=== PATIENT | female | born 1935 | race Caucasian/White ===

== ENCOUNTER 2022-12-31 17:26 | Emergency (ER) | payer MEDICARE ==
[2022-12-31 19:12] LABS: BASOPHILS ABSOLUTE AUTO 0.01 K/uL (0.02-0.10); BASOPHILS PERCENT AUTO 0.1 % (0.0-0.5); EOSINOPHILS ABSOLUTE AUTO 0.13 K/uL (0.04-0.40); EOSINOPHILS PERCENT AUTO 1.5 % (1.0-5.0); HEMATOCRIT 32.8 % (37.0-47.0); HEMOGLOBIN 10.6 g/dL (11.5-16.5); LYMPHOCYTES ABSOLUTE AUTO 2.01 K/uL (1.50-4.00); LYMPHOCYTES PERCENT AUTO 23.1 % (20.0-40.0); MEAN CORPUSCULAR HEMOGLOBIN 30.1 pg (27.0-32.0); MEAN CORPUSCULAR HGB CONC 32.3 g/dL (31.0-35.0); MEAN CORPUSCULAR VOLUME 93 fL (76-96); MEAN PLATELET VOLUME 8.9 fL (6.0-10.0); MONOCYTES ABSOLUTE AUTO 0.94 K/uL (0.20-0.80); MONOCYTES PERCENT AUTO 10.8 % (3.0-10.0); NEUTROPHILS ABSOLUTE AUTO 5.61 K/uL (2.00-7.50); NEUTROPHILS PERCENT AUTO 64.5 % (45.0-70.0); PLATELET COUNT,PLT 190 K/uL (150-500); RED BLOOD CELL COUNT 3.52 M/uL (3.80-5.80); RED CELL DISTRIBUTION WIDTH 13.6 % (11.0-16.0); WHITE BLOOD CELL COUNT,WBC 8.7 K/uL (4.0-11.0)
[2022-12-31 19:29] LABS: A/G RATIO 0.8 (0.8-2.0); ALBUMIN 3.1 g/dL (3.4-5.0); ANION GAP 11.3 mmol/L (5.0-15.0); BILIRUBIN TOTAL 0.3 mg/dL (0.0-1.0); BUN/CREATININE RATIO 20.9 (6-25); CALCIUM 8.9 mg/dL (8.5-10.1); CARBON DIOXIDE,CO2 25.2 mmol/L (21.0-32.0); CREATININE 1.39 mg/dL (0.55-1.02); EST CRCL DRUG DOSING (CG) 26.19 mL/min; POTASSIUM,K 4.5 mmol/L (3.5-5.1)
[2022-12-31 19:29] LABS: APPEARANCE,URINE CLEAR (CLEAR); BILIRUBIN,URINE NEGATIVE (NEGATIVE); COLOR,URINE YELLOW; GLUCOSE,URINE NEGATIVE (NEGATIVE); KETONES,URINE NEGATIVE (NEGATIVE); LEUKOCYTE ESTERASE,URINE TRACE (NEGATIVE); NITRITE,URINE NEGATIVE (NEGATIVE); OCCULT BLOOD,URINE TRACE-INTACT (NEGATIVE); PH,URINE 5.5 (5.0-8.0); PROTEIN,URINE NEGATIVE (NEGATIVE); UROBILINOGEN,URINE 0.2 E.U./dL (0.2-1.0)
[2022-12-31 19:36] LABS: AMORPHOUS SEDIMENT,URINE FEW /HPF; RBC,URINE 0-5 /HPF; SQUAMOUS EPITHELIAL CELLS,UR OCCASIONAL /HPF; WBC,URINE 0-5 /HPF
[2022-12-31] MEDS: Sodium Chloride 0.9% 1,000 ML IV ONE (20:08)
[2022-12-31] MEDS ORDERED: Sodium Chloride 0.9% 10 ML Syringe FLUSH PRN (21:19)
[2022-12-31] MEDS: Lactobacillus Acidophilus/Lactobacillus Sporogenes (Probiotic) Tab PO SCH (21:37)
[2023-01-02] MEDS: Lactobacillus Acidophilus/Lactobacillus Sporogenes (Probiotic) Tab ONE (07:12)
== END 2022-12-31 21:50 | disposition home or self-care (01) ==
LOC: LB.ED 17:26
DX: R19.7 Diarrhea, unspecified (principal); I10 Essential (primary) hypertension; K21.9 Gastro-esophageal reflux disease without esophagitis; Z79.899 Other long term (current) drug therapy
CPT/HCPCS: 36415; 74176; 80053; 81001; 85025; 87045; 87046; 87086; 87427; 87493; 96360; 99283; 99284-25; A9270-GY; J7030